=== PATIENT | male | born 2000 | race Caucasian/White ===

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

== ENCOUNTER 2022-05-28 16:26 | Emergency (ER) | payer BC, OTHER, SELFPAY ==
[2022-05-28 16:49] VITALS: BP 133/67; PULSE 115; RESP 18; TEMP 37.3; O2SAT 99; BMI 22.4
--- NOTE | 2022-05-28 18:08 | ED_ITS ---
HPI - Wound/Laceration <Bre Burch PA-C - Last Filed: 05/28/22 19:28> General Chief Complaint: Wound/Laceration Stated Complaint: R hand index finger lac Time Seen by Provider: 05/28/22 18:08 Mode of arrival: Ambulatory History of Present Illness HPI narrative: Patient is a 22-year-old male reporting for evaluation of right 2nd finger laceration. He reports that he was trying to pop the top of a bottle with a knife, when he hit his right 2nd finger instead. He says it he is able to move it well. Bleeding stopped with pressure from a paper towel bandage. He denies numbness or current pain to the site of injury. Reports that he received his childhood immunizations including tetanus. He denies allergy to medications. Related Data Previous Rx's Medication Instructions Recorded [id number] 3.5 4 drp otic (ear) TID #10 mL 04/30/20 mg/mL-10,000 unit/mL-1 % ear solution Allergies Allergy/AdvReac Type Severity Reaction Status Date / Time No Known Drug Allergies Allergy Unverified 08/30/21 15:15 Patient History <Bre Burch PA-C - Last Filed: 05/28/22 19:28> Social History Smoking Status: Former smoker Smoking Status: Former smoker Substance Use Type: marijuana Exam <Bre Burch PA-C - Last Filed: 05/28/22 19:28> Narrative Exam Narrative: General: Well-developed well-nourished 22-year-old patient in no acute distress. Extremity: Right 2nd finger has 1-1/2 cm laceration traveling transverse across top of the nailbed at the base of his 2nd right finger. Good capillary refill to distal right finger. He is able to extend and bend right finger without assistance and without pain. Initial Vital Signs Initial Vital Signs: Vital Signs Temperature 99.1 F 05/28/22 16:49 Pulse Rate 115 H 05/28/22 16:49 Respiratory Rate 18 05/28/22 16:49 Blood Pressure 133/67 05/28/22 16:49 Pulse Oximetry 99 05/28/22 16:49 Oxygen Delivery Method Room Air 05/28/22 16:49 <DO Tangela Azar Last Filed: 06/01/22 07:07> Initial Vital Signs Initial Vital Signs: Vital Signs Temperature 99.1 F 05/28/22 16:49 Pulse Rate 115 H 05/28/22 16:49 Respiratory Rate 18 05/28/22 16:49 Blood Pressure 133/67 05/28/22 16:49 Pulse Oximetry 99 05/28/22 16:49 Oxygen Delivery Method Room Air 05/28/22 16:49 Procedures <Bre Burch PA-C - Last Filed: 05/28/22 19:28> Laceration Repair Right 2nd finger: Time of procedure: 18:40 Site: other (Right 2nd finger, transverse laceration on lateral side, just touching nailbed) Size (cm): 1.5 Local Anesthetic: lidocaine 1% Amount of anesthesia used (mL): 2.5 Skin layer closed with: nylon Skin layer suture size: 5-0 Number of sutures: 4 Technique: simple, interrupted Course <ELLYN Pike Last Filed: 05/28/22 19:28> Vital Signs Vital signs: Vital Signs - 8 hr 05/28/22 16:49 Temperature 99.1 F Pulse Rate 115 H Respiratory Rate 18 Blood Pressure 133/67 Pulse Oximetry 99 Oxygen Delivery Method Room Air <DO Tangela Azar Last Filed: 06/01/22 07:07> Vital Signs Vital signs: Vital Signs - 8 hr 05/28/22 16:49 Temperature 99.1 F Pulse Rate 115 H Respiratory Rate 18 Blood Pressure 133/67 Pulse Oximetry 99 Oxygen Delivery Method Room Air MDM - Wound/Laceration <ELLYN Pike Last Filed: 05/28/22 19:28> MDM Narrative Medical decision making narrative: CC: Laceration of right 2nd finger occurring today. Complicating co-morbidities: None Data collected from: patient, Social determinants of health that may influence the patients condition: None noted Medical records reviewed: Differential considered: Tendon disruption, laceration Exam documented above, pertinent findings include: Transverse laceration to 2nd right finger at distal end. Consultations: Dr. Yañez observed finger with me and confirmed that there is likely no tendon involvement. Treatments: Patient received 1-1/2 mL of 1% lidocaine without epinephrine in a digital block. Reported continued pain to the lateral side of laceration, so I applied 1 mL of 1% lidocaine without epinephrine directly to the wound itself. 4 stitches placed with 5-0 nylon. Area was irrigated with normal saline prior to suturing and cleansed with chlorhexidine swab. No complications after repair Re- evaluations: No increase in pain after procedure, intact capillary refill of right 2nd finger. Discussion: Discussed wound care and infection precautions with patient as described in discharge instructions below. He is to return to a provider to [facility] ve all 4 stitches removed in 7 days. I have a low suspicion for tendon involvement because he was able to flex and extend his hand without issue. No foreign object noted in wound. Disposition: see below, along with detailed discharge instructions that have been reviewed with patient as well as indications for ED re-evaluation and additional outpatient follow up Discharge Plan Departure Patient Disposition: Home Clinical Impression: Laceration of finger of right hand Instructions: DI for Minor Laceration Activity Restrictions/Additional Instructions: We discussed wound care precautions including keep dry for the next 24 hours then wash with soap and water daily or as it gets dirty. Wear rubber glove if anticipated submersion into dirty water or exposure to contamination. You may keep it covered with a Band-Aid and apply Vaseline or triple antibiotic ointment to the top to help reduce scarring. Please return for evaluation if finger swells, becomes painful to bend or their other concerning signs of worsening infection. Tetanus shot has been done likely within 5 years, so no shot given today. Return to a provider in 7 days for removal of sutures. Prescriptions: No Action [id number] 3.5-10,000-1 mg/mL-unit/mL-% solution 4 drp otic (ear) TID Qty: 10 2RF Referrals: Katelyn Farrell MD [Primary Care Provider] - Stand Alone Forms: Patient Portal/API <Tonja Yañez DO - Last Filed: 06/01/22 07:07> Cosign ED Attending Cosignature Attestation: I was immediately available in the department for consultation. Documentation has been reviewed.
[2022-05-28 19:28] VITALS: BP 127/60; PULSE 77; RESP 16; O2SAT 99
== END 2022-05-28 19:29 | disposition home or self-care (01) ==
PROVIDERS: Emergency Provider Physician Assistant; PCP Family Medicine
DX: S61.210A Laceration without foreign body of right index finger without damage to nail, initial encounter (principal); W26.0XXA Contact with knife, initial encounter
CPT/HCPCS: 12001; 99281; 99283

== ENCOUNTER → 2022-12-30 13:29 | Outpatient (CLI) | payer BC, OTHER, SELFPAY | PROVIDERS: PCP Family Medicine; Visit Provider Physician Assistant Medical | DX: J35.8 Other chronic diseases of tonsils and adenoids (principal) | CPT/HCPCS: 87070; 87147; 87185 ==

== ENCOUNTER → 2023-09-26 14:08 | Outpatient (CLI) | payer BC, OTHER, SELFPAY ==
--- NOTE | 2023-09-26 14:10 | DI.RAD.S_ITS ---
PROCEDURE: XR LUMBAR SPINE 2-3V INDICATIONS: low midline/R side pain/failed backflip trampoline pop TECHNIQUE: 3 views of the lumbar spine were acquired. COMPARISON: None. FINDINGS: Bones: 5 [id number] vertebrae are present. Slight levoconvex curvature of the lumbar spine with apex at L4. Mild degenerative changes at L5-S1 with disc height loss and facet arthropathy.. No vertebral body compression fractures. No suspicious bony lesions. Soft tissues: Overlying bowel gas pattern is normal. No suspicious soft tissue calcifications. IMPRESSION: 1. No acute bony abnormality. 2. Mild degenerative changes at L5-S1. Dictated by: Sharonda Lane M.D. on 09/26/2023 at 14:32 Approved by: Sharonda Lane M.D. on 09/26/2023 at 14:33
== END ==
PROVIDERS: PCP Family Medicine; Referring Provider Student in an Organized Health Care Education/Training Program; Visit Provider Student in an Organized Health Care Education/Training Program
DX: S33.5XXA Sprain of ligaments of lumbar spine, initial encounter (principal); M47.817 Spondylosis without myelopathy or radiculopathy, lumbosacral region; X58.XXXA Exposure to other specified factors, initial encounter
CPT/HCPCS: 72100

== ENCOUNTER → 2024-01-16 14:40 | Outpatient (ROUT) | payer BC, OTHER, SELFPAY ==
[2024-01-16 15:22] LABS: Free T3, Triiodothyronine Free 3.69 pg/mL (2.77-5.27); Free T4, Direct Thyroxine 1.15 ng/dL (0.78-2.19)
[2024-01-16 15:35] LABS: Thyroid Stimulating Hormone 1.69 uIU/mL (0.47-4.68)
[2024-01-18 07:10] LABS: Thyroid Peroxidase Antibodies 12 IU/mL (0-34)
== END ==
PROVIDERS: PCP Family Medicine; Visit Provider Family Medicine
DX: L65.9 Nonscarring hair loss, unspecified (principal); E03.9 Hypothyroidism, unspecified
CPT/HCPCS: 84439; 84443; 84481; 86376

== ENCOUNTER → 2024-01-30 09:35 | Outpatient (CLI) | payer BC, OTHER, SELFPAY | PROVIDERS: PCP Family Medicine; Visit Provider Physician Assistant Medical | DX: J02.9 Acute pharyngitis, unspecified (principal) | CPT/HCPCS: 87070; 87077; 87147 ==